=== PATIENT | female | born 1950 | race Caucasian/White ===

== ENCOUNTER 2021-10-20 13:00 | Outpatient (RCR) | payer BC, SELFPAY ==
--- NOTE | 2021-09-22 15:20 | PT.OPE ---
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 Has had two cortisone injections; the first in 2020 was successful and eliminated pain for 6 months; the second was performed in July of 2021 and has not been very helpful in reducing pain. Pts pain is made worse with motion and relieves with rest. Standing does not cause pain but excessive walking will ultimately cause her knee to flare up. Pt has significant pain in R knee even with just sitting and some slight movements. Hasn't been taking IBP because this was affecting her kidneys. Has throbbing pain at night occasionally. Was every night prior to injection. Pt enjoys to play pickleball and golf and is struggling to participate in these due to pain. Stairs make pain worse. Driving her car is also challenging at times. Pain Comments 8/10 - worst 0/10 - best Current Work Status Retired Precautions Therapy Limitations/Systems Review Not Limited Objective Range of Motion R knee ROM - 5-0-135 (sharp pain with full flexion) L knee ROM - 5-0-135 Strength R Hip Strength Flexion - 4/5 MMT Abduction - 3/5 MMT Adduction - 5/5 MMT IR - unable to test due to pain in medial knee ER - unable to test due to pain in medial knee L Hip Strength Flexion - 4/5 MMT Abduction - 4/5 MMT Adduction - 5/5 MMT IR - 5/5 MMT ER - 5/5 R knee Extension - 5/5 MMT R Knee Flexion - 4+/5 MMT L knee Extension - 5/5 MMT L knee Flexion - 5/5 MMT R ankle DF - 5/5 MMT L ankle DF - 5/5 MMT Assessment Assessment/Impression Pt is a 71 year old female who presents to [facility] PT clinic with R pain. Pts pain is sharp, intermittent, and relieves with rest. Has occasional throbbing pain at night that has been reduced since her last injection in July 2021. Pt indicates that in order for her to receive a Synvisc Injection she must complete therapy. Upon further questions pt clarifies that if she is able to reduce her knee pain through Physical Therapy alone she will gladly work hard to ensure she does everything she can to reduce her pain. Testing reveals excellent ROM of B knees and strength is also well preserved. Hip IR/ER strength testing in sitting causes sharp pain in medial R knee. Valgus and Varus stress tests feel good per pt report. Pts squat pattern is lacking coordination, and shows significant knee valgus, but improved with VC/TC today as well as use of hands during squat. Skilled PT services are medically necessary to address deficits and return patient to highest level of function. Recommend physical therapy sessions 1/week for 4 weeks. Pt agrees with this plan. Printout of HEP was given for I completion and pt gives verbal understanding of each exercise. Primary Functional Limitations Walking, squatting, stairs, golfing. Plan of Care Rehabilitation Potential Good Physical Therapy Goals STG - To be completed in 2-3 weeks: 1. Pt will report consistent use of ice following activities to reduce knee joint pain and effusion. 2. Pt will demo 4/5 MMT for R hip abduction to provide greater support to knee and pelvis with ambulation. LTG - To be completed in 8-12 weeks: 1. Pt to be I with HEP so that they may I manage progression of symptoms. 2. Pt will perform 10+ squats with good control over medial/ lateral deviation of knees to show improved functional strength to assist with transfers. 3. Pt will demonstrate 5/5 MMT for all LE motions on R to provide greater support to pts knee and pelvis during ambulation and climbing steps. 4. Pt will swing golf club x 10 reps without reproduction of R knee pain so that she may return to golfing with her grandchildren. Treatment Plan/Direct Interventions Electrical Stimulation,Gait Training,Ice/Cold/ Vasopneumatic,Joint Mobilization,Manual Therapy, Neuromuscular Re-ed,Self-Care/ Home Management,Therapeutic Activities,Therapeutic Exercises Frequency/Duration 1/week for 4 weeks. Patient Will Be Discharged From Therapy Completion of LTG(s),Skills Plateau,Independent w/HEP, Independently Progressing Evaluation Billing Untimed Code Treatment Minutes 30 PT Eval No Charge No Complexity Low Certification Information Initial Certification Date 09/22/21 Ending Certification Date 10/27/21
== END 2021-12-03 09:29 | disposition home or self-care (01) ==
PROVIDERS: Visit Provider Family Medicine
DX: M17.11 Unilateral primary osteoarthritis, right knee (principal); M25.561 Pain in right knee; M21.061 Valgus deformity, not elsewhere classified, right knee; Z51.89 Encounter for other specified aftercare
CPT/HCPCS: 97110; 97140; 97161